=== PATIENT | male | born 1960 | race Caucasian/White ===

== ENCOUNTER 2023-12-14 16:48 | Emergency (ER) | payer SELFPAY ==
[~2023-12-14] VITALS: Ht 182.9 cm; Wt 98.9 kg
[2023-12-14 17:03] VITALS: BP_SYST 139; PULSE 82; RESP 18; TEMP 97.3; O2SAT 97
[2023-12-14] MEDS ORDERED: BACITRACIN 1 GM OINT TP ONE (17:34)
[2023-12-14] MEDS: ACETAMINOPHEN 500 MG TABLET PO ONE (17:35)
[2023-12-14] MEDS: BACITRACIN ZINC 15 GM TOPICAL OINTMENT TP ONE (17:35)
[2023-12-14] MEDS: IBUPROFEN 600 MG TABLET PO ONE (17:59)
[2023-12-14 18:15] VITALS: BP_SYST 139; PULSE 82; RESP 18; TEMP 97.3; O2SAT 97
== END 2023-12-14 18:16 ==
LOC: SED 16:48
DX: S00.81XA Abrasion of other part of head, initial encounter (principal); Y04.0XXA Assault by unarmed brawl or fight, initial encounter; Y93.89 Activity, other specified; Y92.89 Other specified places as the place of occurrence of the external cause; Y99.8 Other external cause status
CPT/HCPCS: 70450-TC; 70480; 99284